=== PATIENT | male | born 1960 | race Caucasian/White ===

== ENCOUNTER 2017-09-23 06:02 | Inpatient (IN) | payer BC ==
[2017-09-16 13:30] VITALS: BMI 30.4
[2017-09-23] MEDS ORDERED: oxyCODONE HCL 10 MG SUSTAINED ACTING TABLET PO ONE (06:24)
[2017-09-23] MEDS ORDERED: GABAPENTIN 300 MG CAPSULE (FP) PO ONE (06:24)
[2017-09-23] MEDS ORDERED: CELECOXIB 200 MG CAPSULE PO ONE (06:24)
[2017-09-23] MEDS ORDERED: PANTOPRAZOLE 40 MG TABLET (FP) PO ONE (06:25)
--- NOTE | 2017-09-23 07:12 | HP ---
Admitting History and Physical - Admission Chief Complaint: right knee osteoarthritis x years History of Present Illness: 57-year-old male presenting in regard to his right knee. Patient complains of pain, limited range of motion, difficulty ambulating, and difficulty with activities of daily living. Patient has attempted conservative treatment measures including PO medications, activity modification, injections, and exercise programs. As patient has failed all conservative treatment measures, patient would like to proceed with a right total knee arthroplasty. History Source: Patient - Past Medical History Cardiovascular: Yes: HTN, Hyperlipdemia Musculoskeletal: Yes: Osteoarthritis - Past Surgical History Additional Past Surgical History: S/p Left total kneee arthroplasty, November 2013 See written H&P for afditional surgical history - Smoking History Smoking history: Never smoked Have you smoked in the past 12 months: No - Alcohol/Substance Use Hx Alcohol Use: Yes (SOCIAL) Home Medications - Allergies Allergies/Adverse Reactions: Allergies Allergy/AdvReac Type Severity Reaction Status Date / Time No Known Drug Allergies Allergy Verified 09/23/17 06:52 - Home Medications Home Medications: Ambulatory Orders Ascorbic Acid [Vitamin C] 100 mg PO DAILY 09/16/17 Aspirin [Aspirin EC] 81 mg PO DAILY 09/16/17 Atorvastatin Ca [Lipitor] 40 mg PO DAILY 09/16/17 Metoprolol Tartrate 25 mg PO DAILY 09/16/17 Multivitamins [Tab-A-Vit -] 1 tab PO DAILY 09/16/17 Diclofenac Sodium [Diclofenac Sodium ER] 100 mg PO DAILY 09/23/17 Review of Systems - Review of Systems Musculoskeletal: reports: Crepitus (right knee), Decreased ROM (right knee), Joint Pain (right knee), Joint Swelling (right knee) Physical Examination Vital Signs: Vital Signs Temperature 98.1 F 09/23/17 06:55 Pulse Rate 82 09/23/17 06:55 Respiratory Rate 16 09/23/17 06:55 Blood Pressure 133/85 09/23/17 06:55 O2 Sat by Pulse Oximetry (%) Constitutional: Yes: Well Nourished, No Distress Eyes: Yes: Conjunctiva Clear HENT: Yes: Atraumatic, Normocephalic Neck: Yes: Supple Cardiovascular: Yes: Regular Rate and Rhythm Respiratory: Yes: Regular Gastrointestinal: Yes: Soft ...Rectal Exam: Yes: Deferred Musculoskeletal: Yes: Joint Stiffness (riggt knee), Joint Swelling (right knee) Assessment/Plan 57-year-old male presents in regard to his right knee. Patient complains of pain , limited range of motion, difficulty ambulating, and difficulty with activities of daily living. Patient has attempted conservative treatment measures including PO medications, activity modification, injections, and exercise programs. Pros, cons, risks, benefits and alternatives of a right total knee arthroplasty were discussed in detail. Patient confirms his understanding and consents to proceed with a right total knee arthroplasty.
[2017-09-23] MEDS ORDERED: DEXAMETHASONE SOD PHOSPHATE/PF 10 MG/ML SDV ONE (07:27)
[2017-09-23] MEDS ORDERED: BUPIVACAINE HCL/PF 2.5 MG/ML - 30 ML VIAL IJ ONE (07:28)
[2017-09-23] MEDS ORDERED: MIDAZOLAM HCL 2 MG/2 ML SINGLE DOSE VIAL ONE (07:28)
[2017-09-23] MEDS ORDERED: BUPIVACAINE LIPOSOME/PF (EXPAREL) 266 MG/20 ML VIAL ONE (07:28)
[2017-09-23] MEDS ORDERED: VANCOMYCIN 1,000 MG VIAL (RESTRICTED TO ID ONLY) ONE (07:34)
[2017-09-23] MEDS ORDERED: ceFAZolin SODIUM 1 GM VIAL ONE ×2 (07:34→08:32)
[2017-09-23] MEDS ORDERED: TRANEXAMIC ACID 1000 MG/10 ML VIAL IVPUSH ONE (08:00)
[2017-09-23] MEDS ORDERED: ROPIVICAINE 0.2%/MORPH PF/KETOROLAC - 51ML DISP.SYRINGE IA ONE (08:00)
[2017-09-23] MEDS ORDERED: CEFAZOLIN 2 GM in DEXTROSE 5%-WATER - 50 ML IVPB ONE (08:00)
[2017-09-23] MEDS ORDERED: ePHEDrine SULFATE 50 MG/1 ML AMPULE ONE (08:31)
[2017-09-23] MEDS ORDERED: SUCCINYLCHOLINE CHLORIDE 200 MG/10 ML VIAL ONE (08:31)
[2017-09-23] MEDS ORDERED: DEXAMETHASONE SOD PHOSPHATE 4 MG/1 ML VIAL ONE (08:32)
[2017-09-23] MEDS ORDERED: ONDANSETRON 4 MG/2 ML VIAL ONE (08:32)
[2017-09-23] MEDS ORDERED: PROPOFOL 20 ML ONE ×4 (08:32→10:31)
--- NOTE | 2017-09-23 11:41 | OP ---
Operative Note - Note: Operative Date: 09/23/17 Pre-Operative Diagnosis: right knee OA Operation: right TKA Post-Operative Diagnosis: Same as Pre-op Surgeon: Ramesh Buchanan [employer] Operations: Jimena Canela Anesthesia: Spinal Estimated Blood Loss (mls): 50 Operative Report Dictated: Yes
[2017-09-23] MEDS ORDERED: MAG HYDROX/AL HYDROX/SIMETH 30 ML UNIT-DOSE CUP PO PRN (11:43)
[2017-09-23] MEDS ORDERED: MAGNESIUM HYDROX 2400MG/30ML ORAL SUSPENSION 30 ML CUP PO PRN (11:43)
[2017-09-23] MEDS ORDERED: ONDANSETRON 4 MG/2 ML VIAL IVPUSH PRN ×2 (11:43→11:51)
[2017-09-23] MEDS ORDERED: LACTATED RINGERS SOLUTION 1,000 ML IV SCH ×2 (11:45→12:00)
[2017-09-23] MEDS ORDERED: oxyCODONE HCL 5 MG TABLET PO PRN (11:51)
[2017-09-23] MEDS ORDERED: PROMETHAZINE HCL 25 MG/1 ML VIAL IVPUSH PRN (11:51)
[2017-09-23] MEDS ORDERED: ACETAMINOPHEN 1000 MG/100 ML VIAL (NON FORMULARY) IVPB ONE (11:56)
[2017-09-23] MEDS: KETOROLAC TROMETHAMINE 30 MG/1 ML VIAL IVPUSH SCH ×2 (12:07→17:08)
[2017-09-23] MEDS ORDERED: traMADol HCL 50 MG TABLET PO ONE (12:09)
[2017-09-23] MEDS ORDERED: ACETAMINOPHEN INJECTION 100 ML IVPB ONE (12:14)
--- NOTE | 2017-09-23 13:54 | SPEC ---
DATE OF OPERATION: 09/23/2017 PREOPERATIVE DIAGNOSIS: Right knee osteoarthritis. POSTOPERATIVE DIAGNOSIS: Right knee osteoarthritis. PROCEDURE: Right total knee replacement. ATTENDING: Bridgett Kendall MD NURSING RESIDENT: ANGY Feng ANESTHESIA: Spinal plus sedation. ESTIMATED BLOOD LOSS: 50 mL. COMPLICATIONS: None. DISPOSITION: The patient was transferred to the PACU in stable condition. SPECIMEN: Resected bone was sent for pathological analysis. IMPLANTS USED: [place] [employer] size 5 femoral and tibial components, 35-mm patellar component, 13-mm posterior stabilized polyethylene component. INDICATIONS: This is a 57-year-old male who is a longstanding patient of mine who has a diagnosis of bilateral knee osteoarthritis. He underwent a left total knee replacement in 2013 and did well with that surgery. He proceeded to develop grade 4 osteoarthritis in his right knee. This was initially treated nonoperatively, but he failed conservative management and continued to have severe pain and ambulatory dysfunction. Therefore, he was indicated for a right total knee replacement. The risks, benefits, and alternatives to the surgery were explained to the patient in great detail, and he elected to proceed with the surgery. DESCRIPTION OF PROCEDURE: On the day of surgery, the patient was taken to the operating room and placed on the OR table. Spinal anesthesia was administered by the anesthesiologist. The patient was then positioned supine on the table and all bony prominences were padded. A nonsterile tourniquet was placed on the proximal thigh. The knee was then prepped and draped in the usual sterile fashion and intravenous antibiotics were given for infection prophylaxis. A surgical time-out was then performed with the team, and the patients identity, procedure, side, availability of implants, and the administration of antibiotics was confirmed. The leg was then elevated and exsanguinated, and the tourniquet was inflated. With the knee flexed, a midline incision was made and carried down through the subcutaneous fat to the underlying retinaculum. A medial parapatellar arthrotomy was performed. This was followed by a subperiosteal dissection of the tissue off the proximal, medial tibia. A portion of fat pad was removed from under the patellar tendon, and a small portion of fat was excised off the distal supracondylar femur. The knee was then flexed further and the anterior horn of the lateral meniscus was released from the midline. Next, the anterior and posterior cruciate ligaments were transected. Osteophytes were removed from both the femur and tibia. Grade 4 changes were noted diffusely throughout the knee. Hohmann retractors were then placed around the distal femur. The starting drill was used to enter the intramedullary canal. The starting point had been chosen by checking the radiographs and anatomy. Proper alignment and intramedullary placement was then confirmed by placing the long narrow michelle into the femur. Next, the distal femoral cutting guide was adjusted to 6 degrees of valgus and pinned to the femur. The bone resection was assessed using an erika-wing. An approximately 10mm distal cut was made and the cut pieces measured. Once this was complete, the sizing guide was used to determine which size femoral component should be used. Next, the appropriately sized 4-in-1 cutting block was then placed at the correct amount of external rotation and the erika wing was used to assure that there would be no notching of the anterior cortex of the femur. Once this was done, Hohmann retractors were used to protect the medial and lateral collateral ligaments, and all appropriate bone cuts were made. Attention was then turned to the tibia. Hohmann retractors were used to translate the tibia anteriorly and protect the collateral ligaments. The medial and lateral menisci were removed. The extramedullary tibial alignment guide was then placed and adjusted for rotation, varus/valgus, and slope. The height of the cutting block was adjusted to the level of the desired bone resection and then pinned in place. The proximal tibia was then cut with a saw and the bone was removed and measured. Once this was completed, trial components were placed and the knee was taken through a full range of motion. Soft tissue balance was assessed in both flexion and extension and found to be appropriate. The knee was stable throughout the full range of motion. The knee was then put into extension and the patella everted. The synovium around the patella was circumscribed with electrocautery. A caliper was used to measure the patellar thickness and a saw was then used to resect the patella at the chondro-osseous junction. The cut surface was then sized and drilled for the appropriate patellar button, with care taken to medialize it. A trial patella was then placed and the knee was again taken through a full range of motion. The knee was found to have both good balance and good patellar tracking. All of the components were removed except the tibial base plate. The appropriate instrumentation was used to drill and punch the proximal tibia for the keel of the final component. All bony surfaces were then cleaned with pulsatile lavage and dried. Bone cement was then prepared on the back table, and final components were cemented in place in the usual fashion. Extruded cement was removed. The polyethylene trial was placed, the knee was put into extension, and axial pressure was applied for compression while the cement hardened. The patellar button was similarly cemented into place. Once the cement had hardened, the knee was taken through a full range of motion to assess stability, balance, and patellar tracking. This was found to be optimal and the trial polyethylene was exchanged for the appropriately sized real implant. After final implants were placed, a 3-minute dilute Betadine lavage was performed. Following this, the knee was thoroughly irrigated with normal saline via pulse lavage. Normal saline contained 1 g of Ancef per L for a total of 3 L of irrigant. Following this, wound closure was begun. No. 1 Polysorb and 0 VLoc 180 barbed sutures were used to close the arthrotomy. No. 1 Polysorb and 2-0 Polysorb sutures were used in the subcutaneous tissues. The skin was closed using both 3-0 VLoc 90 suture in a running subcuticular fashion and SwiftSet skin adhesive. Once this was completed a sterile Aquacel dressing and compressive Unruly-wrap was applied. The tourniquet was then deflated and the patient was awakened and taken to the PACU in stable condition. BRIDGETT KENDALL M.D. [id number]
[2017-09-23] MEDS: traMADol HCL 50 MG TABLET PO SCH ×2 (15:34→17:09)
[2017-09-23] MEDS: CEFAZOLIN 2 GM/D5W 2 GM/50 ML ML IVPB SCH (17:07)
[2017-09-23] MEDS: ACETAMINOPHEN 325 MG TABLET (FP) PO SCH (17:09)
[2017-09-23] MEDS ORDERED: DEXAMETHASONE SOD PHOSPHATE 10 MG/1 ML VIAL IVPB ONE (20:00)
[2017-09-23] MEDS: oxyCODONE HCL 10 MG SUSTAINED ACTING TABLET PO SCH (21:25)
[2017-09-23] MEDS: GABAPENTIN 300 MG CAPSULE (FP) PO SCH (21:26)
[2017-09-23] MEDS: CELECOXIB 200 MG CAPSULE PO SCH (21:26)
[2017-09-23] MEDS: SENNOSIDES/DOCUSATE COMBO (SENNA PLUS) TABLET (UD) PO SCH (21:26)
[2017-09-23] MEDS: ASCORBIC ACID 500 MG TABLET (FP) PO SCH (21:26)
[2017-09-23] MEDS ORDERED: GABAPENTIN 300 MG CAPSULE (FP) PO SCH (22:00)
[2017-09-24] MEDS: CEFAZOLIN 2 GM/D5W 2 GM/50 ML ML IVPB SCH (02:00)
[2017-09-24] MEDS: KETOROLAC TROMETHAMINE 30 MG/1 ML VIAL IVPUSH SCH ×2 (06:10)
[2017-09-24] MEDS: ACETAMINOPHEN 325 MG TABLET (FP) PO SCH ×5 (06:10→23:49)
[2017-09-24] MEDS: traMADol HCL 50 MG TABLET PO SCH ×5 (06:11→23:50)
[2017-09-24 07:43] LABS: HEMATOCRIT 35.1 % (35.4-49); HEMOGLOBIN 11.2 GM/dl (11.7-16.9); MCH 20.6 pg (25.7-33.7); MCHC 31.9 g/dl (32.0-35.9); MEAN CELL VOLUME 64.6 fl (80-96); MEAN PLT VOLUME 7.7 fl (7.5-11.1); PLATELET COUNT 235 K/MM3 (134-434); RBC 5.43 M/mm3 (4.00-5.60); RDW 14.8 % (11.9-15.9); WHITE BLOOD COUNT 14.8 K/mm3 (4.0-10.8)
[2017-09-24 08:08] LABS: ANION GAP 6 (8-16); BLOOD UREA NITROGEN 25 mg/dl (7-18); CALCIUM 8.4 mg/dl (8.4-10.2); CHLORIDE 105 mmol/L (98-107); CO2 22 mmol/L (22-28); GLUCOSE,RANDOM 165 mg/dl (74-106); POTASSIUM 4.3 mmol/L (3.5-5.1); SODIUM 133 mmol/L (136-145)
[2017-09-24 08:16] LABS: ADD RBC MORPHOLOGY YES
[2017-09-24] MEDS: GABAPENTIN 300 MG CAPSULE (FP) PO SCH ×3 (08:54→21:39)
[2017-09-24] MEDS: ASPIRIN 325 MG TABLET PO SCH (08:54)
[2017-09-24] MEDS: oxyCODONE HCL 10 MG SUSTAINED ACTING TABLET PO SCH ×3 (08:54→21:39)
[2017-09-24] MEDS: SENNOSIDES/DOCUSATE COMBO (SENNA PLUS) TABLET (UD) PO SCH ×3 (08:55→21:39)
[2017-09-24] MEDS: oxyCODONE HCL 5 MG TABLET PO PRN ×2 (08:55→23:51)
[2017-09-24] MEDS: ASCORBIC ACID 500 MG TABLET (FP) PO SCH ×3 (08:55→21:40)
[2017-09-24] MEDS: CELECOXIB 200 MG CAPSULE PO SCH ×3 (08:55→21:39)
[2017-09-24] MEDS: ATORVASTATIN CA 40 MG TABLET (FP) PO SCH (11:18)
[2017-09-24] MEDS: METOPROLOL TARTRATE 25 MG TABLET (FP) PO SCH (11:18)
[2017-09-24] MEDS: MULTIVITAMINS (DAILY MVI) TABLET (FP) PO SCH (11:18)
[2017-09-24] MEDS: PANTOPRAZOLE 40 MG TABLET (FP) PO SCH (11:18)
--- NOTE | 2017-09-24 12:08 | PN ---
Progress Note (short form) - Note Progress Note: 57M POD1 s/p R TKR under spinal anesthetic with peripheral nerve blocks for post operative pain relief. Pt is doing well, states that his pain is under control. Pt reports no anesthetic complications. AVSS. Sensory and motor exam intact in bilateral lower extremities. Continue current regimen.
[2017-09-24 18:13] LABS: ANISOCYTOSIS 1+
[2017-09-25] MEDS: traMADol HCL 50 MG TABLET PO SCH ×2 (05:59→12:55)
[2017-09-25] MEDS: ACETAMINOPHEN 325 MG TABLET (FP) PO SCH ×2 (05:59→12:56)
[2017-09-25 06:44] VITALS: BP 138/78; PULSE 72; TEMP 98.3
[2017-09-25] MEDS ORDERED: diphenhydrAMINE HCL 25 MG CAPSULE (FP) PO PRN (08:17)
--- NOTE | 2017-09-25 08:47 | DS ---
Physical Examination Vital Signs: Vital Signs Temperature 98.3 F 09/25/17 06:00 Pulse Rate 72 09/25/17 06:00 Respiratory Rate 20 09/25/17 06:00 Blood Pressure 138/78 09/25/17 06:00 O2 Sat by Pulse Oximetry (%) 99 09/25/17 08:19 Labs: CBC, BMP 09/24/17 07:25 Discharge Summary Reason For Visit: RIGHT KNEE OSTEOARTHRITIS Current Active Problems Osteoarthritis of right knee (Acute) Procedures: Principal: right TKA Hospital Course: Admitted for elective surgery. Procedure performed without complications. Pt received postoperative antibiotic prophylaxis and DVT ppx. Ambulated with physical therapy. Stable for discharge home with outpatient followup. Condition: Stable - Instructions Diet, Activity, Other Instructions: Dr Buchanan - Knee Replacement Instructions Keep the Aquacel dressing on until removed by Dr. Buchanan in 10-14 days - it is antibacterial and waterproof and you can shower with it on. Call the office for a follow-up appointment with Dr. Buchanan in 10-14 days. Take one Aspirin 325mg daily for 6 weeks to prevent blood clots in your legs. Take one Pantoprazole 40mg daily for 6 weeks to protect against heartburn and ulcers. Take Celebrex 200mg twice daily for 30 days to reduce swelling and inflammation. Take Cephalexin (antibiotic) 3x/day for 10 days to help prevent skin infection. Take a multivitamin, stool softener, and extra vitamin C supplement daily. For pain: *Mild pain (1-3/10): Take 1 Tramadol tablet every 4 hours as needed. Moderate pain (4-6/10): Take 1 Tramadol tablet and 1 Percocet tablet every 4 hours as needed. Severe pain (7-10/10): Take 1 Tramadol tablet and 2 Percocet tablets every 4 hours as needed. Activity: You can put as much weight on the operative leg as you want. Always use a walker or cane for balance and to prevent falls. Expect to see swelling/bruising from the knee all the way down to your toes. Wear the compression stocking on the right side during the day to minimize how much swelling there is in your foot/ankle. Don't wear the stocking at night. You don't have to wear a stocking on the left side. Disposition: [facility]/HOME HEALTH CARE - Home Medications Comprehensive Discharge Medication List: Ambulatory Orders Atorvastatin Ca [Lipitor] 40 mg PO DAILY 09/16/17 Metoprolol Tartrate 25 mg PO DAILY 09/16/17 Multivitamins [Multivit ([facility] Formulary)] 1 tab PO DAILY 09/16/17 Ascorbic Acid [Vitamin C -] 500 mg PO BID tablet 09/25/17 Aspirin [ASA -] 325 mg PO DAILY@0800 tablet 09/25/17 Celecoxib [CeleBREX -] 200 mg PO BID #60 capsule 09/25/17 Cephalexin [Keflex] 500 mg PO TID #30 capsule 09/25/17 Oxycodone HCl/Acetaminophen [Percocet 5-325 mg Tablet] 1 - 2 tab PO Q4H PRN #60 tablet MDD 8 09/25/17 Pantoprazole Sodium [Protonix -] 40 mg PO DAILY #40 tablet.ec 09/25/17 Sennosides/Docusate Sodium [Pericolace -] 2 tablet PO BID tablet 09/25/17 traMADol HCL [Ultram -] 50 mg PO Q4H PRN #90 tablet MDD 6 09/25/17
[2017-09-25] MEDS: ASPIRIN 325 MG TABLET PO SCH (08:48)
[2017-09-25 09:01] LABS: HEMATOCRIT 33.5 % (35.4-49); HEMOGLOBIN 10.5 GM/dl (11.7-16.9); MCH 20.4 pg (25.7-33.7); MCHC 31.4 g/dl (32.0-35.9); MEAN PLT VOLUME 8.5 fl (7.5-11.1); PLATELET COUNT 246 K/MM3 (134-434); RBC 5.16 M/mm3 (4.00-5.60); RDW 15.1 % (11.9-15.9); WHITE BLOOD COUNT 12.3 K/mm3 (4.0-10.8)
[2017-09-25] MEDS: MULTIVITAMINS (DAILY MVI) TABLET (FP) PO SCH (09:31)
[2017-09-25] MEDS: PANTOPRAZOLE 40 MG TABLET (FP) PO SCH (09:32)
[2017-09-25] MEDS: METOPROLOL TARTRATE 25 MG TABLET (FP) PO SCH (09:32)
[2017-09-25] MEDS: GABAPENTIN 300 MG CAPSULE (FP) PO SCH (09:32)
[2017-09-25] MEDS: ATORVASTATIN CA 40 MG TABLET (FP) PO SCH (09:33)
[2017-09-25] MEDS: CELECOXIB 200 MG CAPSULE PO SCH (09:33)
[2017-09-25] MEDS: oxyCODONE HCL 10 MG SUSTAINED ACTING TABLET PO SCH (09:33)
[2017-09-25] MEDS: SENNOSIDES/DOCUSATE COMBO (SENNA PLUS) TABLET (UD) PO SCH (09:33)
[2017-09-25] MEDS: ASCORBIC ACID 500 MG TABLET (FP) PO SCH (09:34)
[2017-09-25] MEDS: oxyCODONE HCL 5 MG TABLET PO PRN (09:35)
--- NOTE | 2017-09-26 14:44 | PATH ---
Surgical Pathology Report Patient Name: NITHYA CATES Med. Rec. #: [id number] /Age/Gender: 1960 (Age: 57) / M Account: [id number] Location: [facility] Taken: 09/23/2017 Received: 09/23/2017 Reported: 09/26/2017 Physicians: Ramesh Buchanan M.D. Specimen(s) Received RIGHT BONE FRAGMENTS Clinical History Right knee osteoarthritis Final Diagnosis BONE AND SOFT TISSUE, RIGHT KNEE, REPLACEMENT: DEGENERATIVE JOINT DISEASE. Electronically Signed Adilson Dumont M.D. Gross Description Received in formalin labeled "right knee bones," is a 12.0 x 8.5 x 1.8 cm aggregate of multiple irregular portions of bone and soft tissue. The tibial plateau measures 8.0 x 5.9 x 1.7 cm. There are multiple areas of eburnation identified, measuring up to 3.7 cm in greatest dimension. The remaining articular surfaces are aguilar-yellow and diffusely granular. The underlying trabecular bone is yellow and hard. Leather Cutter sections are submitted in one cassette, following decalcification. /09/24/2017 saudi09/24/2017
== END 2017-09-25 14:17 | disposition home health service (06) | DRG 470 ==
LOC: FM/S 06:02
PROVIDERS: ADMIT Student in an Organized Health Care Education/Training Program; ATTEND Student in an Organized Health Care Education/Training Program
PROC: 0SRC0J9 Replacement of Right Knee Joint with Synthetic Substitute, Cemented, Open Approach (ICD-10-PCS; principal; 2017-09-23 08:59)
DX: M17.11 Unilateral primary osteoarthritis, right knee (principal); I10 Essential (primary) hypertension
CPT/HCPCS: 36415; 73560-TC-RT-FY; 80048; 85027; 87389; 88304-TC; 88311-TC; 94010; 94760; 97116-GP; 97162-GP; J0131; J1100